=== PATIENT | female | born 1950 | race Caucasian/White ===

== ENCOUNTER 2018-09-09 20:58 | Emergency (ER) | END 2018-09-09 23:38 | disposition home or self-care (01) ==

== ENCOUNTER 2019-01-16 18:03 | Emergency (ER) | payer BC ==
[~2019-01-16] VITALS: Ht 170.2 cm; Wt 57.2 kg
[~2019-01-16 18:03] MED LIST: ATOR20TA38 PO; DICY10CA40 PO; HYDR-3720 PO; HYDR-3980 PO; ONDA4TAB14 PO; ONDA4TAB35 PO; PANT40TA3 PO
[2019-01-16 18:57] VITALS: Ht 170.2 cm; Wt 57.2 kg
[2019-01-16] MEDS ORDERED: SOD CHLORIDE 0.9% 1,000 ML IV STA ×3 (19:19→21:40)
[2019-01-16] MEDS ORDERED: morphine 4 MG/ML VIAL IV STA (19:19)
[2019-01-16] MEDS ORDERED: ONDANSETRON 4 MG INJ IV STA ×2 (19:19→20:24)
[2019-01-16] MEDS ORDERED: SOD CHLORIDE 0.9% 100 ML ONE (20:22)
[2019-01-16] MEDS ORDERED: IOHEXOL 300MG/ML 150 ML BTL ONE (20:22)
[2019-01-16] MEDS ORDERED: FAMOTIDINE 20 MG INJ IV STA (20:24)
[2019-01-16] MEDS ORDERED: HYDROmorphONE 1 MG/ML SYG IV STA (20:24)
[2019-01-16] MEDS ORDERED: PROCHLORPERAZINE 10 MG INJ IV ONE (22:00)
[2019-01-16 22:30] VITALS: BP 161/98; PULSE 91; RESP 18
--- NOTE | 2019-01-16 22:50 | ERD ---
ER Documentation Chief Complaint Chief Complaint AP w/ n/v since 3PM. unable to keep anything down. hx of SBO HPI This is a very pleasant 68-year-old female that presents the emergency department complaining of a sudden onset of abdominal cramping that occurred around 3 PM, 7 hours prior to arrival. The patient indicated the pain was a cramping-like sensation. The pain was in the left lower quadrant but began to radiate to the right lower quadrant. She had multiple episodes of nonbloody nonbilious emesis. She said no fevers or shaking or chills. She denies any shortness of breath at rest or exertion. No frequency urgency or dysuria. No hemoptysis no hematemesis, no melanotic stools. She states she is never had any similar symptoms in the past. She denies any chest pain or pressure. ROS All systems reviewed and are negative except as per history of present illness. Medications Home Meds Active Scripts Ondansetron (Ondansetron Odt) 4 Mg Tab.rapdis, 4 MG PO Q6H PRN for NAUSEA AND/OR VOMITING, #10 TAB Prov:POLY RAMIREZ 09/09/18 Hydrocodone/Acetaminophen ([place] 10-325 Tablet) 1 Each Tablet, 1 TAB PO Q6H PRN for PAIN, #7 TAB Prov:POLY RAMIREZ 09/09/18 Dicyclomine HCl (Dicyclomine HCl) 10 Mg Capsule, 10 MG PO TID PRN for ABDOMINAL CRAMPING, #20 CAP Prov:POLY RAMIREZ 09/09/18 Dicyclomine HCl (Dicyclomine HCl) 10 Mg Capsule, 10 MG PO QID, #30 CAP Prov:DAE CHO MD 10/01/15 Ondansetron Hcl* (Zofran* ODT) 4 mg -ODT Tab.disper, 4 MG PO Q6 PRN for NAUSEA AND/OR VOMITING, #20 TAB Prov:DAE CHO MD 10/01/15 Pantoprazole* (Protonix*) 40 Mg Tablet.dr, 40 MG PO BID for 30 Days, TAB Prov:ESTELLA LEGGETT 09/11/15 Reported Medications Hydrocodone Bit-Acetaminophen* ([place]*) 7.5-325 Tablet, 1 TAB PO Q12 PRN for PAIN 10/01/15 Atorvastatin Calcium* (Atorvastatin Calcium*) 20 Mg Tablet, 20 MG PO HS, TAB 06/13/14 Allergies Allergies: Coded Allergies: Penicillins (Verified Allergy, Unknown, rash, 09/09/18) Sulfa (Sulfonamide Antibiotics) (Verified Allergy, Unknown, rash, 09/09/18) PMhx/Soc History of Surgery: No Anesthesia Reaction: No Hx Neurological Disorder: Yes (seizure) Hx Respiratory Disorders: No Hx Cardiac Disorders: No Hx Psychiatric Problems: No Hx Miscellaneous Medical Probl: No Hx Alcohol Use: No Hx Substance Use: No Hx Tobacco Use: Yes Smoking Status: Current every day smoker Physical Exam Vitals Vital Signs Date Temp Pulse Resp B/P (MAP) Pulse Ox O2 O2 Flow FiO2 Time Delivery Rate 01/16/19 99.5 130 23 102/57 97 18:57 (72) Physical Exam Constitutional:Well-developed. Well-nourished. Actively vomiting. HEENT:Normocephalic. Atraumatic.Pupils were equal round reactive to light. Dry mucous membranes.No tonsillar exudates. Neck: No nuchal rigidity. No lymphadenopathy. No posterior cervical spine tenderness or step-offs. Respiratory: Not using accessory muscles of respiration.Lungs were clear to auscultation bilaterally. No rhonchi. No rales. No wheezing. Cardiovascular: Regular rate regular rhythm.No murmurs. No rubs were appreciated.S1, S2 normal. Distal pulses are palpable 2+ bilaterally. GI: Abdomen was soft. Tenderness in the left lower quadrant in the right lower quadrant however psoas sign and obturator sign was negative. Non Distended. No pulsatile abdominal masses or bruits. No rebound. No guarding. Bowel sounds were present and normal. Muscle skeletal: Full range of motion of both the upper and lower extremities bilaterally.Normal muscle tone.No assymetrical calf tenderness or swelling. Skin: No petechia, no purpura. No lesions on the palms or the soles of the feet. No maculopapular rash. NEURO: Patient was alert, awake, orientated x3.No facial droop. Gait observed and normal with no ataxia.Speech had regular rate and rhythm. No focal n eurological deficits. Result Diagram: 01/16/19194301/16/191943 Results 24 hrs Laboratory Tests Test 01/16/19 19:44 01/16/19 20:47 White Blood Count 9.9 10^3/ul Red Blood Count 4.59 10^6/ul Hemoglobin 14.3 g/dl Hematocrit 41.5 % Mean Corpuscular Volume 90.4 fl Mean Corpuscular Hemoglobin 31.2 pg Mean Corpuscular Hemoglobin Concent 34.5 g/dl Red Cell Distribution Width 11.9 % Platelet Count 379 10^3/UL Mean Platelet Volume 9.2 fl Immature Granulocytes % 0.300 % Neutrophils % 76.2 % Lymphocytes % 15.0 % Monocytes % 7.9 % Eosinophils % 0.1 % Basophils % 0.5 % Nucleated Red Blood Cells % 0.0 /100WBC Immature Granulocytes # 0.030 10^3/ul Neutrophils # 7.5 10^3/ul Lymphocytes # 1.5 10^3/ul Monocytes # 0.8 10^3/ul Eosinophils # 0.0 10^3/ul Basophils # 0.1 10^3/ul Nucleated Red Blood Cells # 0.0 10^3/ul Prothrombin Time 12.9 Sec Prothrombin Time Ratio 1.0 INR International Normalized Ratio 0.96 Activated Partial Thromboplast Time 25.9 Sec Sodium Level 140 mmol/L Potassium Level 5.3 mmol/L Chloride Level 103 mmol/L Carbon Dioxide Level 23 mmol/L Anion Gap 14 Blood Urea Nitrogen 12 mg/dl Creatinine 0.50 mg/dl Est Glomerular Filtrat Rate mL/min > 60 mL/min Glucose Level 114 mg/dl Calcium Level 9.8 mg/dl Total Bilirubin 0.6 mg/dl Direct Bilirubin 0.00 mg/dl Indirect Bilirubin 0.6 mg/dl Aspartate Amino Transf (AST/SGOT) 46 IU/L Alanine Aminotransferase (ALT/SGPT) 12 IU/L Alkaline Phosphatase 61 IU/L Troponin I 0.013 ng/ml Total Protein 9.1 g/dl Albumin 5.0 g/dl Globulin 4.10 g/dl Albumin/Globulin Ratio 1.21 Amylase Level 117 U/L Lipase 93 U/L Urine Color YELLOW Urine Clarity SLIGHTLY CLOUDY Urine pH 6.0 Urine Specific [place] 1.041 Urine Ketones 2+ mg/dL Urine Nitrite POSITIVE mg/dL Urine Bilirubin NEGATIVE mg/dL Urine Urobilinogen NEGATIVE mg/dL Urine Leukocyte Esterase 1+ Kavita/ul Urine Microscopic RBC 4 /HPF Urine Microscopic WBC 10 /HPF Urine Squamous Epithelial Cells FEW /HPF Urine Mucus FEW /HPF Urine Hemoglobin NEGATIVE mg/dL Urine Glucose NEGATIVE mg/dL Urine Total Protein NEGATIVE mg/dl Current Medications Medications Dose Sig/Benigno Start Time Status Last (Trade) Ordered Route PRN Stop Time Admin Dose Reason Admin Sodium 1,000 ml @ Q1H STAT 01/16/19 DC 01/16/19 Chloride 1,000 mls/hr IV 19:19 01/16/19 19:47 20:18 Morphine 4 mg ONCE STAT 01/16/19 DC 01/16/19 Sulfate IV 19:01/16/19 19:47 (morphine) 19:20 Ondansetron 4 mg ONCE STAT 01/16/19 DC 01/16/19 HCl (Zofran IV 19:01/16/19 19:47 Inj) 19:20 IV Flush 10 ml STK-MED 01/16/19 DC (NS 10 ml) ONCE .ROUTE 20:22 01/16/19 20:23 Sodium 100 ml @ ud STK-MED 01/16/19 DC Chloride ONCE .ROUTE 20:22 01/16/19 20:23 Iohexol 150 ml STK-MED 01/16/19 DC (Omnipaque ONCE .ROUTE 20:22 01/16/19 300mg/ ml) 20:23 Sodium 1,000 ml @ Q1H STAT 01/16/19 DC 01/16/19 Chloride 1,000 mls/hr IV 20:24 01/16/19 20:38 21:23 1 mg ONCE STAT 01/16/19 DC 01/16/19 Hydromorphone IV 20:24 01/16/19 20:39 HCl 20:29 (Dilaudid) Ondansetron 4 mg ONCE STAT 01/16/19 DC 01/16/19 HCl (Zofran IV 20:24 01/16/19 20:38 Inj) 20:29 Famotidine 20 mg ONCE STAT 01/16/19 DC 01/16/19 (Pepcid Iv) IV 20:24 01/16/19 20:38 20:29 Sodium 1,000 ml @ Q1H STAT 01/16/19 DC Chloride 1,000 mls/hr IV 21:40 01/16/19 22:39 10 mg ONCE ONCE 01/16/19 DC Prochlorperaz IV 22:00 01/16/19 ine 22:01 (Compazine Inj) Procedures/MDM This patient presented to the emergency department with abdominal pain and was seen and evaluated by myself. My differential diagnosis included but was not li mited to abdominal aortic aneurysm, appendicitis, pancreatitis, perforated peptic ulcer, perforated viscus, Boerhaaves syndrome or visceral pain such as diverticulitis, DKA, esophagitis, hepatitis or bowel obstruction. The patient was placed on a court recording monitor, continuous pulse oximetry, and IV access was established by nursing staff. Patient was given intravenous morphine and Zofran for analgesic control. The patient continued to have episodes of nonbloody nonbilious emesis and therefore received Reglan Pepcid and Compazine. 12 Lead EKG tracing ordered and reviewed by myself showed: Sinus tachycardia 109 bpm and no arrhythmia. OH interval normal. QRS duration normal. No ST segment elevation No ST segment depression. No changes consistent with acute ischemia. I obtained a CT scan of the patient's abdomen due to the localization of her pain and emesis. Patient had no previous surgical history. CT scan reviewed by the radiologist indicate the following: The colon is decompressed resulting in mild wall thickening without obstruction or appendicitis. There is extensive diverticulosis of the presence of a sigmoid diverticulitis. Atherosclerotic disease is present. The patient ketonuria but no evidence of urinary tract infection. I did feel this was secondary to dehydration from multiple episodes of emesis. She received IV fluid resuscitation. Observation Note: Time: 5 hours Family Hx: No Hypertension Evaluation: Multiple exams showed improving symptoms and no evidence of inability to tolerate oral intake. Indicates the patient I did feel her symptoms were result of diverticulosis. She was sent home with antiemetics and analgesic medication. I also stated that she would benefit from an outpatient colonoscopy. She indicated she will be able to arrange for that. The patient was discharged home in fair condition. They were instructed to return to the manuel rgency department at any time if there was any worsening of their condition. The patient stated they would follow up with their PCP in the next 24-48 hours to initiate a suitable medication regimen under the care of their PCP as well as to allow their PCP to monitor any drug reactions. The patient was discharged home with prescriptions after they gave informed consent to the new medication. They were also fully informed by myself on the adverse effects and adverse drug interactions in order to provide adequate safeguards to prevent possible adverse reactions to medications. Departure Diagnosis: Primary Impression: Diverticulosis Additional Impression: Severe dehydration Condition: RIAN Bryson MD Jan 16, 2019 22:50
[2019-01-16] MEDS ORDERED: FAMO-96 PO (22:53)
[2019-01-16] MEDS ORDERED: ONDA4TAB14 PO (22:53)
[2019-01-16] MEDS ORDERED: HYDR-4011 PO (22:53)
== END 2019-01-16 23:18 | disposition home or self-care (01) ==
LOC: E/R 18:03
DX: K57.30 Diverticulosis of large intestine without perforation or abscess without bleeding (principal); F17.210 Nicotine dependence, cigarettes, uncomplicated; E86.0 Dehydration
CPT/HCPCS: 36415; 74177; 80053; 81001; 82150; 83690; 84484; 85025; 85610; 85730; 87086; 96374; 96375; 96376; 99285; J0780; J1170; J2270; J2405; J7030; Q9967

== ENCOUNTER 2019-01-30 19:20 | Emergency (ER) | payer BC ==
[~2019-01-30] VITALS: Ht 170.2 cm; Wt 55.9 kg
[~2019-01-30 19:20] MED LIST changes: +FAMO-96 PO; +HYDR-4011 PO
[2019-01-30 19:42] VITALS: Ht 170.2 cm; Wt 55.9 kg
[2019-01-30] MEDS ORDERED: LEVOFLOXACIN 500MG/D5W (PMX) 100 ML IVPB STA (20:37)
[2019-01-30] MEDS ORDERED: metroNIDAZOLE 500 MG/NS (PMX) 100 ML IVPB STA (20:37)
[2019-01-30] MEDS ORDERED: SODIUM CHLORIDE 0.9% 1L BAG IV* STA (20:37)
[2019-01-30] MEDS ORDERED: ONDANSETRON 4 MG INJ IV STA (20:46)
[2019-01-30] MEDS ORDERED: ONDANSETRON 4 MG INJ ONE (20:47)
[2019-01-30] MEDS ORDERED: morphine 4 MG/ML VIAL IV STA (20:58)
[2019-01-30] MEDS ORDERED: LEVE500T8 PO (21:12)
[2019-01-30] MEDS ORDERED: ATOR20TA38 PO (21:12)
[2019-01-30] MEDS ORDERED: morphine 2 MG INJ IV ONE (21:47)
[2019-01-30] MEDS ORDERED: LEVO750T25 PO (23:26)
--- NOTE | 2019-01-30 23:28 | ERD ---
ER Documentation Chief Complaint Chief Complaint n/v LLQ abd pain. hx diverticulitis. here 2 weeks ago for same HPI 68-year-old female presenting with complaints of right upper quadrant abdominal pain radiating to the right flank. She has associated nausea and vomiting. She describes the pain as aching, without alleviating or exacerbating factors. No associated fevers or chills. No associated diarrhea, constipation, hematochezia or melena. She states that she has a history of diverticulitis and thinks that this may be secondary to her diverticulitis. ROS All systems reviewed and are negative except as per history of present illness. Medications Home Meds Active Scripts Levofloxacin* (Levaquin*) 750 Mg Tablet, 750 MG PO DAILY for 4 Days, TAB Prov:DANY MARTINEZ MD 01/30/19 Ondansetron (Ondansetron Odt) 4 Mg Tab.rapdis, 4 MG PO Q6H PRN for NAUSEA AND/OR VOMITING, #20 TAB Prov:RIAN MENDES MD 01/16/19 Reported Medications Levetiracetam* (Levetiracetam*) 500 Mg Tablet, 500 MG PO BID, TAB 01/30/19 Atorvastatin Calcium* (Atorvastatin Calcium*) 20 Mg Tablet, 20 MG PO QHS, #30 TAB 01/30/19 Discontinued Reported Medications Hydrocodone Bit-Acetaminophen* ([place]*) 7.5-325 Tablet, 1 TAB PO Q12 PRN for PAIN 10/01/15 Atorvastatin Calcium* (Atorvastatin Calcium*) 20 Mg Tablet, 20 MG PO HS, TAB 06/13/14 Discontinued Scripts Hydrocodone/Acetaminophen ([place] 5-325 Tablet) 1 Each Tablet, 1 TAB PO Q6H PRN for PAIN, #7 TAB Prov:RIAN MENDES MD 01/16/19 Famotidine* (Pepcid*) 20 Mg Tablet, 20 MG PO BID for 4 Days, TAB Prov:RIAN MENDES MD 01/16/19 Ondansetron (Ondansetron Odt) 4 Mg Tab.rapdis, 4 MG PO Q6H PRN for NAUSEA AND/OR VOMITING, #10 TAB Prov:POLY RAMIREZ 09/09/18 Hydrocodone/Acetaminophen ([place] 10-325 Tablet) 1 Each Tablet, 1 TAB PO Q6H PRN for PAIN, #7 TAB Prov:POLY RAMIREZ S. 09/09/18 Dicyclomine HCl (Dicyclomine HCl) 10 Mg Capsule, 10 MG PO TID PRN for ABDOMINAL CRAMPING, #20 CAP Prov:POLY RAMIREZ S. 09/09/18 Dicyclomine HCl (Dicyclomine HCl) 10 Mg Capsule, 10 MG PO QID, #30 CAP Prov:DAE CHO MD 10/01/15 Ondansetron Hcl* (Zofran* ODT) 4 mg -ODT Tab.disper, 4 MG PO Q6 PRN for NAUSEA AND/OR VOMITING, #20 TAB Prov:DAE CHO MD 10/01/15 Pantoprazole* (Protonix*) 40 Mg Tablet.dr, 40 MG PO BID for 30 Days, TAB Prov:OLEKSANDRESTELLA 09/11/15 Allergies Allergies: Coded Allergies: Penicillins (Verified Allergy, Unknown, rash, 01/30/19) Sulfa (Sulfonamide Antibiotics) (Verified Allergy, Unknown, rash, 01/30/19) PMhx/Soc History of Surgery: No Anesthesia Reaction: No Hx Neurological Disorder: Yes (seizure) Hx Respiratory Disorders: No Hx Cardiac Disorders: No Hx Psychiatric Problems: Yes (depression) Hx Miscellaneous Medical Probl: Yes (diverticulitis) Hx Alcohol Use: No Hx Substance Use: No Hx Tobacco Use: Yes Smoking Status: Current every day smoker FmHx Family History: No diabetes Physical Exam Vitals Vital Signs Date Temp Pulse Resp B/P (MAP) Pulse Ox O2 O2 Flow FiO2 Time Delivery Rate 01/30/19 100 18 138/86 100 Room Air 23:53 (103) 01/30/19 99.1 139 28 107/72 98 19:42 (84) Physical Exam Const: Nontoxic. Mild distress secondary to pain. Retching Head: Atraumatic Eyes: Normal Conjunctiva ENT: Dry mucous membranes. Normal External Ears, Nose and Mouth. Neck: Full range of motion. No meningismus. Resp: Clear to auscultation bilaterally Cardio: Tachycardic with regular rhythm, no murmurs Abd: Soft, mild right upper quadrant tenderness to deep palpation. Negative Al[place]antara sign. No McBurney's point tenderness. non distended. Normal bowel sounds Skin: No petechiae or rashes Back: Right CVA mild tenderness to percussion Ext: No cyanosis, or edema Neur: Awake and alert, normal speech, moving all extremities, no facial asymmetry Psych: Normal Mood and Affect Result Diagram: 01/30/19203001/30/192030 Results 24 hrs Laboratory Tests Test 01/30/19 20:31 01/30/19 20:53 01/30/19 22:18 White Blood Count 13.7 10^3/ul Red Blood Count 4.68 10^6/ul Hemoglobin 14.5 g/dl Hematocrit 42.3 % Mean Corpuscular Volume 90.4 fl Mean Corpuscular Hemoglobin 31.0 pg Mean Corpuscular 34.3 g/dl Hemoglobin Concent Red Cell Distribution Width 12.7 % Platelet Count 453 10^3/UL Mean Platelet Volume 9.8 fl Immature Granulocytes % 0.400 % Neutrophils % 71.4 % Lymphocytes % 14.5 % Monocytes % 13.2 % Eosinophils % 0.1 % Basophils % 0.4 % Nucleated Red Blood Cells % 0.0 /100WBC Immature Granulocytes # 0.050 10^3/ul Neutrophils # 9.8 10^3/ul Lymphocytes # 2.0 10^3/ul Monocytes # 1.8 10^3/ul Eosinophils # 0.0 10^3/ul Basophils # 0.1 10^3/ul Nucleated Red Blood Cells # 0.0 10^3/ul Prothrombin Time 13.0 Sec Prothrombin Time Ratio 1.0 INR International 0.97 Normalized Ratio Activated Partial Thromboplast 26.9 Sec Time Sodium Level 140 mmol/L Potassium Level 3.9 mmol/L Chloride Level 104 mmol/L Carbon Dioxide Level 22 mmol/L Anion Gap 14 Blood Urea Nitrogen 17 mg/dl Creatinine 0.65 mg/dl Est Glomerular Filtrat > 60 mL/min Rate mL/min Glucose Level 156 mg/dl Calcium Level 10.6 mg/dl Total Bilirubin 0.3 mg/dl Direct Bilirubin 0.00 mg/dl Indirect Bilirubin 0.3 mg/dl Aspartate Amino 27 IU/L Transf (AST/SGOT) Alanine 11 IU/L Aminotransferase (ALT/SGPT) Alkaline Phosphatase 76 IU/L Total Protein 8.7 g/dl Albumin 4.9 g/dl Globulin 3.80 g/dl Albumin/Globulin Ratio 1.28 POC Venous Lactate 1.5 mmol/L Urine Color KATRIN Urine Clarity CLOUDY Urine pH 6.0 Urine Specific [place] 1.025 Urine Ketones 1+ mg/dL Urine Nitrite NEGATIVE mg/dL Urine Bilirubin NEGATIVE mg/dL Urine Urobilinogen 1+ mg/dL Urine Leukocyte Esterase 1+ Kavita/ul Urine Microscopic RBC 3 /HPF Urine Microscopic WBC 51 /HPF Urine Squamous Epithelial Cells MODERATE /HPF Urine Bacteria MODERATE /HPF Urine Mucus MANY /HPF Urine Hemoglobin 1+ mg/dL Urine Glucose NEGATIVE mg/dL Urine Total Protein 1+ mg/dl Current Medications Medications Dose Sig/Benigno Start Time Status Last (Trade) Ordered Route PRN Stop Time Admin Dose Reason Admin Sodium 1,680 ml BOLUS OVER 2 01/30/19 DC 01/30/19 Chloride HOURS STAT 20:37 21:13 (NS) IV* 01/30/19 20:39 100 ml @ ONCE STAT 01/30/19 DC 01/30/19 Metronidazole 100 mls/hr IVPB 20:37 21:14 01/30/19 21:36 100 ml @ ONCE STAT 01/30/19 DC 01/30/19 Levofloxacin/ 100 mls/hr IVPB 20:37 22:13 Dextrose 01/30/19 21:36 Ondansetron 4 mg ONCE STAT 01/30/19 DC 01/30/19 HCl (Zofran IV 20:46 21:14 Inj) 01/30/19 20:53 Ondansetron 4 mg STK-MED 01/30/19 DC HCl (Zofran ONCE .ROUTE 20:47 Inj) 01/30/19 20:48 Morphine 4 mg ONCE STAT 01/30/19 DC 01/30/19 Sulfate IV 20:58 21:13 (morphine) 01/30/19 20:59 Morphine 2 mg ONCE ONCE 01/30/19 DC 01/30/19 Sulfate IV 21:47 22:13 (morphine) 01/30/19 21:48 Procedures/MDM EMERGENT LABS AND DIAGNOSTIC STUDIES: Lab Results above were reviewed and interpreted by me. CBC: Leukocytosis and thrombocytosis, possibly secondary to infection. No significant anemia CMP: No evidence of clinically significant electrolyte abnormality, acidosis, renal failure, hypoglycemia, liver disease, or biliary obstruction Lactate within normal limits without evidence of sepsis or tissue hypoperfusion UA: Consistent with infection 12-lead EKG was interpreted by Minerva Martinez MD: Sinus tachycardia at 124 beats per minute Normal axis Normal intervals No acute ST or T wave changes suggestive of acute ischemia or STEMI. Radiology Results as interpreted by Radiology below were reviewed by Sharon Martinez MD: Ultrasound right upper quadrant unremarkable Chest x-ray shows no acute abnormalities Initial Nursing notes reviewed. Previous Medical Records requested via the Electronic Health Record. EMERGENCY DEPARTMENT COURSE / MEDICAL DECISION MAKING: Patient presented with right upper quadrant pain with nausea and vomiting. She was tachycardic and tachypneic, so sepsis workup was initiated. Differential includes but is not limited to biliary colic, biliary obstruction, acute cholecystitis, pancreatitis, hepatitis, lower lobe pneumonia, gastritis, colitis, ureterolithiasis, pyelonephritis. Doubt cardiac or vascular pathology. Labs were ordered to evaluate for above and were notable for leukocytosis, thrombocytosis, and evidence of UTI. Given the clinical picture, I do suspect pyelonephritis. Ultrasound of the right upper quadrant and chest x-ray showed no acute abnormalities. She did receive broad-spectrum antibiotics and IV fluids here. Workup did not reveal evidence of severe sepsis or septic shock. She was treated with analgesics and antiemetics with improvement of her sympto ms. Patient feels comfortable going home at this time. She is tolerating fluids by mouth. Prescription for Levaquin given. Return precautions were discussed. Patient's blood pressure was elevated (>120/80) but appears stable without evidence of hypertensive emergency or urgency. The patient was counseled about the risks of hypertension and urged to pursue outpatient monitoring and therapy within a week with their primary care physician. Departure Diagnosis: Primary Impression: Pyelonephritis Additional Impression: Nausea and vomiting Vomiting type: unspecified Vomiting Intractability: non-intractable Qualified Codes: R11.2 - Nausea with vomiting, unspecified Condition: Stable Patient Instructions: Nausea and Vomiting-Adult, Pyelonephritis, Female (Adult) Referrals: DOCTOR,NOT ON STAFF (PCP) Additional Instructions: Return to the ER if you are having any worsening symptoms or not improving within the next 24-48 hours. DANY MARTINEZ MD Jan 30, 2019 23:28
[2019-01-30 23:53] VITALS: BP 138/86; PULSE 100; RESP 18
== END 2019-01-30 23:54 | disposition home or self-care (01) ==
LOC: E/R 19:20
DX: N12 Tubulo-interstitial nephritis, not specified as acute or chronic (principal)
CPT/HCPCS: 36415; 71045; 76705; 80053; 81001; 83605; 85025; 85610; 85730; 87040; 87086; 93005; 96374; 96375; 96376; 99285; J1956; J2270; J2405; J7030

== ENCOUNTER 2019-02-21 16:41 | Emergency (ER) | payer BC ==
[~2019-02-21] VITALS: Ht 170.2 cm; Wt 59.3 kg
[~2019-02-21 16:41] MED LIST changes: -DICY10CA40 PO; -FAMO-96 PO; -HYDR-3720 PO; -HYDR-3980 PO; -HYDR-4011 PO; +LEVE500T8 PO; +LEVO750T25 PO; -ONDA4TAB35 PO; -PANT40TA3 PO
[2019-02-21 17:07] VITALS: Ht 170.2 cm; Wt 59.3 kg
[2019-02-21] MEDS ORDERED: ONDANSETRON 4 MG INJ IV STA (21:56)
[2019-02-21] MEDS ORDERED: morphine 4 MG/ML VIAL IV STA (21:56)
--- NOTE | 2019-02-21 21:58 | ERD ---
ER Documentation Chief Complaint Chief Complaint R flank pain 07/25, N/V, dizziness X 5 days HPI This is a 68-year-old female presents for evaluation of right flank pain, associated nausea and vomiting. Patient states that she feels dehydrated, and her pain has made her feel lightheaded. She denies chest pain or shortness of breath. She has no fever. There are no alleviating or aggravating factors or symptoms. ROS All systems reviewed and are negative except as per history of present illness. Medications Home Meds Active Scripts Ondansetron (Ondansetron Odt) 4 Mg Tab.rapdis, 4 MG PO Q6H PRN for NAUSEA AND/OR VOMITING, #20 TAB Prov:RIAN MENDES MD 01/16/19 Reported Medications Docusate Sodium* (Colace*) 100 Mg Capsule, 100 MG PO DAILY, #30 CAP 02/21/19 Levetiracetam* (Levetiracetam*) 500 Mg Tablet, 500 MG PO BID, TAB 01/30/19 Atorvastatin Calcium* (Atorvastatin Calcium*) 20 Mg Tablet, 20 MG PO QHS, #30 TAB 01/30/19 Discontinued Scripts Levofloxacin* (Levaquin*) 750 Mg Tablet, 750 MG PO DAILY for 4 Days, TAB Prov:DANY FRANCIS MD 01/30/19 Allergies Allergies: Coded Allergies: Penicillins (Unverified Allergy, Unknown, rash, 02/21/19) Sulfa (Sulfonamide Antibiotics) (Unverified Allergy, Unknown, rash, 02/21/19) PMhx/Soc History of Surgery: No Anesthesia Reaction: No Hx Neurological Disorder: Yes (seizure) Hx Respiratory Disorders: No Hx Cardiac Disorders: No Hx Psychiatric Problems: Yes (depression) Hx Miscellaneous Medical Probl: Yes (diverticulitis) Hx Alcohol Use: No Hx Substance Use: No Hx Tobacco Use: Yes Physical Exam Vitals Vital Signs Date Temp Pulse Resp B/P (MAP) Pulse Ox O2 O2 Flow FiO2 Time Delivery Rate 02/21/19 99.4 121 18 158/76 97 17:07 (103) Physical Exam Const: Well-developed, well-nourished, nontoxic-appearing Head: Atraumatic Eyes: Normal Conjunctiva ENT: Normal External Ears, Nose and Mouth. Neck: Full range of motion. No meningismus. Resp: Clear to auscultation bilaterally Cardio: Regular rate and rhythm, no murmurs Abd: Soft, non tender, non distended. Normal bowel sounds Skin: No petechiae or rashes Back: No midline or flank tenderness Ext: No cyanosis, or edema Neur: Awake and alert Psych: Normal Mood and Affect Result Diagram: 02/21/19221402/21/192214 Results 24 hrs Laboratory Tests Test 02/21/19 22:15 02/21/19 22:59 White Blood Count 10.1 10^3/ul Red Blood Count 4.29 10^6/ul Hemoglobin 13.1 g/dl Hematocrit 38.7 % Mean Corpuscular Volume 90.2 fl Mean Corpuscular Hemoglobin 30.5 pg Mean Corpuscular Hemoglobin Concent 33.9 g/dl Red Cell Distribution Width 11.9 % Platelet Count 332 10^3/UL Mean Platelet Volume 9.4 fl Immature Granulocytes % 0.400 % Neutrophils % 60.6 % Lymphocytes % 25.2 % Monocytes % 11.8 % Eosinophils % 1.1 % Basophils % 0.9 % Nucleated Red Blood Cells % 0.0 /100WBC Immature Granulocytes # 0.040 10^3/ul Neutrophils # 6.1 10^3/ul Lymphocytes # 2.5 10^3/ul Monocytes # 1.2 10^3/ul Eosinophils # 0.1 10^3/ul Basophils # 0.1 10^3/ul Nucleated Red Blood Cells # 0.0 10^3/ul Sodium Level 139 mmol/L Potassium Level 4.1 mmol/L Chloride Level 103 mmol/L Carbon Dioxide Level 26 mmol/L Anion Gap 10 Blood Urea Nitrogen 10 mg/dl Creatinine 0.80 mg/dl Est Glomerular Filtrat Rate mL/min > 60 mL/min Glucose Level 113 mg/dl Calcium Level 10.2 mg/dl Total Bilirubin 0.2 mg/dl Direct Bilirubin 0.00 mg/dl Indirect Bilirubin 0.2 mg/dl Aspartate Amino Transf (AST/SGOT) 18 IU/L Alanine Aminotransferase (ALT/SGPT) 11 IU/L Alkaline Phosphatase 63 IU/L Troponin I < 0.012 ng/ml Total Protein 7.5 g/dl Albumin 4.4 g/dl Globulin 3.10 g/dl Albumin/Globulin Ratio 1.41 Lipase 174 U/L Urine Color STRAW Urine Clarity CLEAR Urine pH 7.0 Urine Specific [place] 1.005 Urine Ketones NEGATIVE mg/dL Urine Nitrite NEGATIVE mg/dL Urine Bilirubin NEGATIVE mg/dL Urine Urobilinogen NEGATIVE mg/dL Urine Leukocyte Esterase 1+ Kavita/ul Urine Microscopic RBC 1 /HPF Urine Microscopic WBC 5 /HPF Urine Bacteria FEW /HPF Urine Hemoglobin NEGATIVE mg/dL Urine Glucose NEGATIVE mg/dL Urine Total Protein NEGATIVE mg/dl Current Medications Medications Dose Sig/Benigno Start Time Status Last (Trade) Ordered Route PRN Stop Time Admin Dose Reason Admin Morphine 4 mg ONCE STAT 02/21/19 DC 02/21/19 Sulfate IV 21:56 02/21/19 22:44 (morphine) 21:59 Ondansetron 4 mg ONCE STAT 02/21/19 DC 02/21/19 HCl (Zofran IV 21:56 02/21/19 22:44 Inj) 21:59 Ketorolac 15 mg ONCE STAT 02/21/19 DC 02/21/19 Tromethamine IV 23:13 02/21/19 23:21 (Toradol) 23:14 CBC: no e/o of systemic infection or severe anemia CMP: no e/o severe acidosis, alkalosis, renal failure, diabetic ketoacidosis, liver disease Lipase: no e/o pancreatitis PT/INR: normal coagulation Urine: no e/o acute infection or hematuria EKG: Rate/Rhythm: Normal Sinus Rhythm QRS, ST, T-waves: No changes consistent w/ acute ischemia Impression: No evidence of ischemia or arrhythmia Procedures/MDM 68-year-old female presents for evaluation of right flank pain. She has a recent history of a 3 mm kidney stone, she had no fever, no peritoneal signs on exam. Her lab work-up was overall unremarkable her CT of the pelvis did not show a kidney stone, and this may be a sign that her kidney stone is not passed, patient is otherwise stable for discharge home, at discharge she was in no distress. EKG: Rate/Rhythm: Normal Sinus Rhythm QRS, ST, T-waves: No changes consistent w/ acute ischemia Impression: No evidence of ischemia or arrhythmia Departure Diagnosis: Primary Impression: Dizziness Additional Impression: Abdominal pain Abdominal location: unspecified location Qualified Codes: R10.9 - Unspecified abdominal pain Condition: Stable MARION GARZA MD February 21, 2019 21:58
[2019-02-21] MEDS ORDERED: DOCU-144 PO (22:36)
[2019-02-21] MEDS ORDERED: KETOROLAC 15 MG INJ IV STA (23:13)
[2019-02-22] MEDS ORDERED: ONDA8TAB14 PO (00:25)
[2019-02-22 00:55] VITALS: BP 169/116; PULSE 77; RESP 18
== END 2019-02-22 00:58 | disposition home or self-care (01) ==
LOC: E/R 16:41
DX: R42 Dizziness and giddiness (principal); R10.9 Unspecified abdominal pain; Z87.891 Personal history of nicotine dependence
CPT/HCPCS: 36415; 74176; 80053; 81001; 83690; 84484; 85025; 93005; 96374; 96375; 99285; J1885; J2270; J2405

== ENCOUNTER 2019-03-04 15:47 | Inpatient (IN) | payer BC ==
[~2019-03-04] VITALS: Ht 170.2 cm; Wt 56.5 kg
[~2019-03-04 15:47] MED LIST changes: +DOCU-144 PO; -LEVO750T25 PO; +ONDA8TAB14 PO
[2019-03-04] MEDS ORDERED: AZTREONAM 1 GM/NS (PMX) 50 ML IVPB STA (15:59)
[2019-03-04] MEDS ORDERED: VANCOMYCIN 1 GM (PMX) 250 ML IVPB ONE (16:00)
[2019-03-04] MEDS ORDERED: SODIUM CHLORIDE 0.9% 1L BAG IV* STA (16:02)
[2019-03-04] MEDS ORDERED: ACETAMINOPHEN 325 MG TAB PO STA (16:02)
[2019-03-04] MEDS ORDERED: morphine 4 MG/ML VIAL IV STA ×2 (16:13→17:44)
[2019-03-04] MEDS ORDERED: ONDANSETRON 4 MG INJ IV STA ×2 (16:13→17:44)
[2019-03-04] MEDS ORDERED: ACETAMINOPHEN 325 MG TAB PO PRN ×2 (18:00→20:00)
[2019-03-04] MEDS ORDERED: ONDANSETRON 4 MG INJ IV PRN (18:00)
--- NOTE | 2019-03-04 19:03 | ERD ---
ER Documentation Chief Complaint Chief Complaint rt flank pain with vomiting x few days HPI Patient is a 68-year-old female with no medical problems who presents with nausea and vomiting. She said that she started with nausea on Monday. She tried some medication and it stopped but she has had decreased appetite over the past 2 days. She started with vomiting today and then dry heaves and was vomiting bile. She also has right-sided flank pain and says "maybe it is my kidney". She admits to fevers and says that she has had a kidney infection in the past. Upon review of old medical records this is the patient's eighth visit to the ER since 2013. Review of the emergency department information exchange system shows visits to 2 separate emergency departments for a total of 8 visits over the past 1 year. She goes to a local clinic for her primary care. ROS All systems reviewed and are negative except as per history of present illness. Medications Home Meds Active Scripts Ondansetron (Ondansetron Odt) 8 Mg Tab.rapdis, 8 MG PO Q6H PRN for NAUSEA AND/OR VOMITING, #10 TAB Prov:MARION GARZA MD 02/22/19 Reported Medications Docusate Sodium* (Colace*) 100 Mg Capsule, 100 MG PO DAILY, #30 CAP 02/21/19 Levetiracetam* (Levetiracetam*) 500 Mg Tablet, 500 MG PO BID, TAB 01/30/19 Atorvastatin Calcium* (Atorvastatin Calcium*) 20 Mg Tablet, 20 MG PO QHS, #30 TAB 01/30/19 Discontinued Scripts Ondansetron (Ondansetron Odt) 4 Mg Tab.rapdis, 4 MG PO Q6H PRN for NAUSEA AND/OR VOMITING, #20 TAB Prov:RIAN MENDES MD 01/16/19 Allergies Allergies: Coded Allergies: Penicillins (Unverified Allergy, Unknown, rash, 03/04/19) Sulfa (Sulfonamide Antibiotics) (Unverified Allergy, Unknown, rash, 03/04/19) PMhx/Soc History of Surgery: No Anesthesia Reaction: No Hx Neurological Disorder: Yes (seizure) Hx Respiratory Disorders: No Hx Cardiac Disorders: No Hx Psychiatric Problems: Yes (depression) Hx Miscellaneous Medical Probl: Yes (diverticulitis) Hx Alcohol Use: No Hx Substance Use: No Hx Tobacco Use: Yes Smoking Status: Current every day smoker FmHx Family History: diabetes Physical Exam Vitals Vital Signs Date Temp Pulse Resp B/P (MAP) Pulse Ox O2 O2 Flow FiO2 Time Delivery Rate 03/04/19 98.4 99 18 152/97 98 Room Air 18:00 (115) 03/04/19 105 18 149/93 98 Room Air 17:00 (111) 03/04/19 98.5 16:33 03/04/19 100.8 130 18 145/88 98 15:58 (107) Physical Exam Const: Moderate distress Head: Atraumatic Eyes: Normal Conjunctiva ENT: Normal External Ears, Nose and Mouth. Neck: Full range of motion. No meningismus. Resp: Clear to auscultation bilaterally Cardio: Tachycardic rate without murmur Abd: Soft, non tender, non distended. Normal bowel sounds Skin: No petechiae or rashes Back: No midline or flank tenderness Ext: No cyanosis, or edema Neur: Awake and alert Psych: Normal Mood and Affect Result Diagram: 03/04/19 1626 03/04/19 1626 Results 24 hrs Laboratory Tests Test 03/04/19 16:26 03/04/19 16:40 03/04/19 16:50 White Blood Count 9.0 10^3/ul Red Blood Count 4.68 10^6/ul Hemoglobin 14.4 g/dl Hematocrit 42.0 % Mean Corpuscular Volume 89.7 fl Mean Corpuscular Hemoglobin 30.8 pg Mean Corpuscular 34.3 g/dl Hemoglobin Concent Red Cell Distribution Width 12.0 % Platelet Count 358 10^3/UL Mean Platelet Volume 9.5 fl Immature Granulocytes % 0.300 % Neutrophils % 75.2 % Lymphocytes % 13.7 % Monocytes % 10.1 % Eosinophils % 0.0 % Basophils % 0.7 % Nucleated Red Blood Cells % 0.0 /100WBC Immature Granulocytes # 0.030 10^3/ul Neutrophils # 6.8 10^3/ul Lymphocytes # 1.2 10^3/ul Monocytes # 0.9 10^3/ul Eosinophils # 0.0 10^3/ul Basophils # 0.1 10^3/ul Nucleated Red Blood Cells # 0.0 10^3/ul Prothrombin Time 12.9 Sec Prothrombin Time Ratio 1.0 INR International 0.96 Normalized Ratio Activated Partial Thromboplast 26.6 Sec Time Sodium Level 142 mmol/L Potassium Level 4.0 mmol/L Chloride Level 101 mmol/L Carbon Dioxide Level 24 mmol/L Anion Gap 17 Blood Urea Nitrogen 15 mg/dl Creatinine 0.66 mg/dl Est Glomerular Filtrat > 60 mL/min Rate mL/min Glucose Level 167 mg/dl Calcium Level 10.1 mg/dl Total Bilirubin 0.6 mg/dl Direct Bilirubin 0.00 mg/dl Indirect Bilirubin 0.6 mg/dl Aspartate Amino 26 IU/L Transf (AST/SGOT) Alanine 11 IU/L Aminotransferase (ALT/SGPT) Alkaline Phosphatase 79 IU/L Troponin I < 0.012 ng/ml Total Protein 9.0 g/dl Albumin 5.1 g/dl Globulin 3.90 g/dl Albumin/Globulin Ratio 1.30 Lipase 81 U/L POC Venous Lactate 2.2 mmol/L Urine Color YELLOW Urine Clarity SLIGHTLY CLOUDY Urine pH 6.0 Urine Specific [place] 1.026 Urine Ketones 2+ mg/dL Urine Nitrite NEGATIVE mg/dL Urine Bilirubin 1+ mg/dL Urine Urobilinogen 2+ mg/dL Urine Leukocyte Esterase 2+ Kavita/ul Urine Microscopic RBC 3 /HPF Urine Microscopic WBC 27 /HPF Urine Squamous Epithelial Cells MODERATE /HPF Urine Bacteria FEW /HPF Urine Mucus MANY /HPF Urine Hemoglobin NEGATIVE mg/dL Urine Glucose NEGATIVE mg/dL Urine Total Protein 1+ mg/dl Current Medications Medications Dose Sig/Benigno Start Time Status Last (Trade) Ordered Route PRN Stop Time Admin Dose Reason Admin Vancomycin 250 ml @ ONCE ONCE 03/04/19 DC 03/04/19 HCl 125 mls/hr IVPB 16:00 17:38 03/04/19 17:59 Aztreonam 50 ml @ ONCE STAT 03/04/19 DC 03/04/19 100 mls/hr IVPB 15:59 16:54 03/04/19 16:28 Sodium 1,680 ml BOLUS OVER 2 03/04/19 DC 03/04/19 Chloride HOURS STAT 16:02 16:32 (NS) IV* 03/04/19 16:03 650 mg ONCE STAT 03/04/19 DC 03/04/19 Acetaminophen PO 16:02 16:33 (Tylenol 03/04/19 16:03 Tab) Morphine 4 mg ONCE STAT 03/04/19 DC 03/04/19 Sulfate IV 16:13 16:30 (morphine) 03/04/19 16:14 Ondansetron 4 mg ONCE STAT 03/04/19 DC 03/04/19 HCl (Zofran IV 16:13 16:30 Inj) 03/04/19 16:14 Morphine 4 mg ONCE STAT 03/04/19 DC 03/04/19 Sulfate IV 17:44 18:02 (morphine) 03/04/19 17:45 Ondansetron 4 mg ONCE STAT 03/04/19 DC 03/04/19 HCl (Zofran IV 17:44 18:01 Inj) 03/04/19 17:45 Ondansetron 4 mg BRIDGE ORDER 03/04/19 HCl (Zofran PRN IV 18:00 Inj) NAUSEA/VOMITI 03/05/19 17:59 NG 650 mg ER BRIDGE 03/04/19 Acetaminophen PRN PO 18:00 (Tylenol .MILD PAIN 03/05/19 17:59 Tab) 1-3 OR TEMP Procedures/MDM Chest x-ray read by radiology. CT abdomen pelvis read by radiology. EKG read by me: Rate/Rhythm: Sinus tachycardia Intervals: Normal Impression: Tachycardia without ischemia Sepsis Documentation: Patient's infectious symptoms have not stabilized and the patient is at risk of rapid decompensation. The patient will be admitted for careful hydration, antibiotic therapy, and infectious source control. SEVERE SEPSIS CRITERIA: Infectious source: Pyelonephritis End organ damage indicated by: Lactate greater than 2 SEPSIS MANAGEMENT Time of recognition of sepsis: 1640. Time of recognition of severe sepsis: 1640. Time of recognition of septic shock: No septic shock at this time. 3 HOUR BUNDLE Blood cultures x 2 before broad-spectrum antibiotics: Yes 30 ml/kg NS bolus completed Initial lactate 2.2 Repeat lactate pending SEPTIC SHOCK ASSESSMENT: No lactic acid > 4.0 No persistent hypotension (SBP < 90 or 40 mmHg drop, MAP < 65) despite 30 mL/kg IV fluid bolus VOLUME REASSESSMENT FOR SEPTIC SHOCK: No septic shock at this time PERSISTENT HYPOTENSION TREATMENT: Comfort care no Central line not Required Vasopressor started not required I considered further perfusion assessment with CVP measurement, SCVO2, bedside ultrasound volume assessment, passive leg raise, trial of further fluid bolus. And proceeded with 30 ml/kg fluid bolus of NSS, broad spectrum antibiotics, and admission. The patient was given vancomycin and aztreonam as she has a penicillin allergy. I spoke with Dr. Londono from [place] for admission to a medical surgical bed. CRITICAL CARE Critical care time 35 minutes Emergent fluid management while maintaining close respiratory support. Provision of immediate and broad-spectrum antibiotic therapy. Simultaneous assessment for possible sources in order to direct targeted therapy. Consideration for invasive and chemical support to prevent cardiopulmonary collapse. Critical care time is independent of procedures performed. Departure Diagnosis: Primary Impression: Severe sepsis Additional Impression: Pyelonephritis Condition: RENETTA Henriquez MD March 04, 2019 19:03
[2019-03-04 19:44] VITALS: BP 156/89; PULSE 102; RESP 20
[2019-03-04] MEDS: LEVETIRACETAM 500 MG TAB PO SCH (20:44)
[2019-03-04] MEDS: morphine 2 MG INJ IV PRN ×2 (20:48→23:09)
[2019-03-04] MEDS: SOD CHLORIDE 0.9% 1,000 ML IV SCH (20:50)
[2019-03-04] MEDS ORDERED: ATORVASTATIN 20 MG TAB PO SCH (21:00)
[2019-03-04 21:53] VITALS: Ht 170.2 cm; Wt 56.5 kg
[2019-03-04] MEDS: AZTREONAM 1 GM/NS (PMX) 50 ML IVPB SCH (23:04)
[2019-03-04] MEDS: ONDANSETRON 4 MG INJ IV PRN (23:09)
--- NOTE | 2019-03-05 00:15 | QN ---
Documentation Comment H&P dict 1. fever with RUQ/R flank pain, check us, cont rx for presumed uti DREAD EDGE MD March 05, 2019 00:15
[2019-03-05] MEDS: metroNIDAZOLE 500 MG/NS (PMX) 100 ML IVPB SCH ×3 (00:46→13:24)
[2019-03-05 01:41] VITALS: BP 142/84; PULSE 95; RESP 18
[2019-03-05] MEDS: morphine 2 MG INJ IV PRN ×3 (04:04→13:24)
[2019-03-05] MEDS: ONDANSETRON 4 MG INJ IV PRN ×2 (04:04→08:33)
[2019-03-05] MEDS: SOD CHLORIDE 0.9% 1,000 ML IV SCH ×3 (04:04→16:00)
[2019-03-05] MEDS: AZTREONAM 1 GM/NS (PMX) 50 ML IVPB SCH ×2 (05:17→15:00)
--- NOTE | 2019-03-05 06:28 | HP ---
DATE OF ADMISSION: 03/04/2019 CHIEF COMPLAINT: Nausea. HISTORY OF PRESENT ILLNESS: The patient presents to the emergency room at [facility] with a 2- to 3-day history of nausea. She states that this began last Monday, approximately 2 to 3 days ago. She has been having difficulty eating over that same time. She denies any actual vomiting. De nies diarrhea, constipation. States that this is associated with some right flank and right upper qu adrant pain. She does have this 1 time before which she says was attributed to a kidney infection. PAST MEDICAL HISTORY: Significant for hyperlipidemia. MEDICATIONS: Outpatient include: 1. Lipitor 20 mg daily. 2. Keppra 500 mg b.i.d. 3. Colace 100 mg daily. 4. Zofran as needed. ALLERGIES: 1. PENICILLIN. 2. SULFA. SOCIAL HISTORY: The patient lives at home in [place] with her and grandson, is independent of activities of daily living. Smokes approximately 3 cigarettes a day but is working to quit. Francisco Javier es alcohol or illicit drug use. FAMILY HISTORY: Noncontributory. REVIEW OF SYSTEMS: Five systems reviewed and found not to be revealing. PHYSICAL EXAMINATION: VITAL SIGNS: Blood pressure 156/89, pulse rate 102, respirations 20, temperature is 99.1. GENERAL: Pleasant woman in no acute distress. Alert and oriented x3. HEENT: Normocephalic, atraumatic without evident scleral icterus, perioral cyanosis. Mucous membran es are moist. NECK: Soft and supple without masses. No evidence of jugular venous distention or carotid bruits. CHEST: Clear to auscultation and percussion bilaterally. HEART: Regular rate and rhythm, S1-S2, no added sounds. ABDOMEN: Soft, tender especially in the right upper quadrant. No palpable hepatosplenomegaly. EXTREMITIES: Without clubbing, cyanosis, or edema. SKIN: Without rashes. NEUROLOGIC: Grossly intact. LABORATORY STUDIES: Reveal a hemoglobin of 14.4 g/dL, white count 9000, platelets of 358,000. INR 0 .96, sodium 142, potassium 4.0, chloride 101, bicarbonate 24, BUN 15, creatinine 0.66, glucose 167. Liver function tests reveal an AST 26, ALT 11, total bilirubin 0.6, alkaline phosphatase 79. UA show s [address] scan of the abdomen and pelvis reveals fluid-filled loops of jejunum, but otherwise no rmal. ASSESSMENT AND PLAN: Fever, unclear etiology. Leading hypothesis at this time is urinary tract infe ction, pyelonephritis; however, consider also gallstone disease as a possibility. We will obtain ult rasound for further clarification. Continue treatment with antibiotics at this time. Dictated By: DREAD EDGE MD RER/NTS Conf#: [id number] DID#: [id number] CC: LISA GOMEZ MD;*EndCC*
[2019-03-05 08:06] VITALS: BP 101/66; PULSE 78; RESP 20
[2019-03-05] MEDS: LEVETIRACETAM 500 MG TAB PO SCH (08:33)
[2019-03-05] MEDS ORDERED: CEPH-443 PO (08:58)
[2019-03-05] MEDS ORDERED: CEPH-442 PO (08:58)
--- NOTE | 2019-03-05 08:58 | PDOCDIS ---
Discharge Instructions CONDITION [id number] Patient Condition: [id number] Good HOME CARE INSTRUCTIONS: [id number] Diet Instructions: [id number] FOLLOW UP/APPOINTMENTS Follow-up Plan pcp 1 week LISA GOMEZ MD March 05, 2019 08:58
[2019-03-05] MEDS ORDERED: DOCUSATE SODIUM 100 MG CAP PO SCH (09:00)
--- NOTE | 2019-03-05 09:54 | DS ---
DATE OF ADMISSION: 03/04/2019 DATE OF DISCHARGE: 03/05/2019 DISCHARGE DIAGNOSES: 1. Acute pyelonephritis. 2. Hyperlipidemia. 3. History of seizure disorder. HOSPITAL COURSE: A 68-year-old female who presented to emergency room with complaint of nausea x2 to 3 days, associated with right flank pain. The patient denies any vomiting. There was no dysuria. Initial evaluation revealed evidence of urinary tract infection and possible pyelonephritis. There w as no associated leukocytosis. Initial CAT scan suggested mild small bowel ileus. The patient had r ight upper quadrant tenderness as well. However, her gallbladder ultrasound showed no evidence of ch olelithiasis or acute cholecystitis. Previously seen right intrarenal calculus was no longer visuali zed. Her symptoms improved during the hospitalization. She is in a stable condition for discharge. I prescribed 7 days of Keflex. MEDICATIONS ON DISCHARGE: 1. Keflex 500 mg p.o. every 8 hours x7 days. 2. Atorvastatin 20 mg p.o. at bedtime. 3. Levetiracetam 500 mg p.o. b.i.d. 4. Colace 100 mg p.o. daily. 5. [place] 5/325 one tablet every 6 hours as needed. PLAN: Follow up with primary care physician in 1 week. Dictated By: LISA FORMAN/ANGI Conf#: [id number] DID#: [id number] CC: LISA GOMEZ MD;*EndCC*
[2019-03-05 13:29] VITALS: BP 118/73; PULSE 75; RESP 20
[2019-03-05 13:38] VITALS: BP 137/73; PULSE 88; RESP 20
== END 2019-03-05 18:10 | disposition home health service (06) | DRG 690 ==
LOC: E/R 15:47 → 2NE 17:47 → EDBEDREQ 18:19
PROVIDERS: ADMIT Internal Medicine; ATTEND Internal Medicine
DX: N10 Acute pyelonephritis (principal); E78.5 Hyperlipidemia, unspecified; F17.210 Nicotine dependence, cigarettes, uncomplicated; G40.909 Epilepsy, unspecified, not intractable, without status epilepticus
CPT/HCPCS: 36415; 71045; 74176; 76700; 80053; 81001; 83605; 83690; 84484; 85025; 85610; 85730; 87086; 93005; 96374; 96375; J2270; J2405; J3370; J7030

== ENCOUNTER 2019-08-10 14:57 | Inpatient (IN) | payer BC ==
[~2019-08-10] VITALS: Ht 170.2 cm; Wt 59.3 kg
[~2019-08-10 14:57] MED LIST changes: +ACET500C5 PO; +AMLO-145 PO; +CARV6.2579 PO; +CEPH-442 PO; +CEPH-443 PO; +CEPH500C PO; +DIAZ5TAB PO; +NAPR-985 PO
[2019-08-10] MEDS ORDERED: ONDANSETRON 4 MG INJ IV STA (17:09)
[2019-08-10] MEDS ORDERED: morphine 4 MG/ML VIAL IV STA (17:09)
[2019-08-10] MEDS ORDERED: SOD CHLORIDE 0.9% 1,000 ML IV STA (17:09)
[2019-08-10] MEDS ORDERED: AZTREONAM 1 GM/NS (PMX) 50 ML IVPB STA (18:23)
[2019-08-10] MEDS ORDERED: SODIUM CHLORIDE 0.9% 1L BAG IV* STA (18:23)
[2019-08-10] MEDS ORDERED: CIPROFLOXACIN 500 MG TAB PO ONE (18:30)
[2019-08-10] MEDS ORDERED: VANCOMYCIN 1 GM (PMX) 250 ML IVPB ONE (18:30)
[2019-08-10] MEDS ORDERED: LORAZEPAM 2 MG INJ IV ONE (18:30)
[2019-08-10] MEDS ORDERED: ACETAMINOPHEN 325 MG TAB PO PRN (19:00)
[2019-08-10] MEDS: LEVETIRACETAM 500 MG TAB PO SCH (22:27)
[2019-08-10] MEDS ORDERED: DIAZEPAM 5 MG TAB PO PRN (22:30)
[2019-08-10] MEDS: ONDANSETRON 4 MG INJ IV PRN (22:33)
[2019-08-10] MEDS: SOD CHLORIDE 0.9% 1,000 ML IV SCH (22:33)
[2019-08-10] MEDS: CEFTRIAXONE 1 GM/50 ML (PMX) 50 ML IVPB SCH (22:42)
[2019-08-11] MEDS: ONDANSETRON 4 MG INJ IV PRN ×4 (00:36→19:02)
[2019-08-11] MEDS: ACETAMINOPHEN 325 MG TAB PO PRN ×2 (01:59→06:57)
[2019-08-11 02:34] VITALS: BP 160/86; PULSE 91; RESP 20
[2019-08-11 02:35] VITALS: Ht 170.2 cm; Wt 59.3 kg
[2019-08-11] MEDS: morphine 2 MG INJ IV PRN ×7 (04:06→21:15)
[2019-08-11] MEDS: SOD CHLORIDE 0.9% 1,000 ML IV SCH ×3 (06:47→21:23)
[2019-08-11] MEDS: DOCUSATE SODIUM 100 MG CAP PO SCH (08:24)
[2019-08-11] MEDS: LEVETIRACETAM 500 MG TAB PO SCH ×2 (08:24→21:15)
[2019-08-11] MEDS: ENOXAPARIN 40 MG/0.4 ML SYG SC SCH (08:26)
[2019-08-11 08:55] VITALS: BP 181/98; PULSE 78; RESP 18
[2019-08-11] MEDS: AMLODIPINE 5 MG TAB PO SCH ×2 (10:45→21:16)
[2019-08-11] MEDS: metroNIDAZOLE 500 MG/NS (PMX) 100 ML IVPB SCH ×3 (10:45→21:16)
[2019-08-11] MEDS ORDERED: SOD CHLORIDE 0.9% 0 ML ONE (14:00)
[2019-08-11] MEDS ORDERED: IOHEXOL 300MG/ML 150 ML BTL ONE (14:00)
[2019-08-11 15:10] VITALS: BP 169/95; PULSE 82; RESP 18
[2019-08-11 16:54] VITALS: BP 153/85; PULSE 95
[2019-08-11 20:00] VITALS: BP 157/98; PULSE 94; RESP 19
[2019-08-11] MEDS: ATORVASTATIN 20 MG TAB PO SCH (21:15)
[2019-08-11] MEDS: CEFTRIAXONE 1 GM/50 ML (PMX) 50 ML IVPB SCH (23:06)
[2019-08-12] MEDS: morphine 2 MG INJ IV PRN ×7 (01:27→23:40)
[2019-08-12] MEDS: ONDANSETRON 4 MG INJ IV PRN (01:27)
[2019-08-12 02:00] VITALS: BP 136/99; PULSE 88; RESP 18
[2019-08-12] MEDS: metroNIDAZOLE 500 MG/NS (PMX) 100 ML IVPB SCH (05:17)
[2019-08-12] MEDS: SOD CHLORIDE 0.9% 1,000 ML IV SCH (07:05)
[2019-08-12 07:31] VITALS: BP 129/81; PULSE 90; RESP 18
[2019-08-12] MEDS: LEVETIRACETAM 500 MG TAB PO SCH ×2 (08:29→21:17)
[2019-08-12] MEDS: DOCUSATE SODIUM 100 MG CAP PO SCH (08:29)
[2019-08-12] MEDS: AMLODIPINE 5 MG TAB PO SCH ×2 (08:29→21:00)
[2019-08-12] MEDS: ENOXAPARIN 40 MG/0.4 ML SYG SC SCH (08:31)
[2019-08-12] MEDS ORDERED: POTASSIUM CHLORIDE (SR) 20 MEQ TAB PO STA (11:20)
[2019-08-12 14:23] VITALS: BP 102/63; PULSE 88; RESP 16
[2019-08-12] MEDS: POTASSIUM CHLORIDE 30 MEQ in SOD CHLORIDE 0.9% 1,000 ML IV SCH (15:40)
[2019-08-12 20:00] VITALS: BP 87/54; PULSE 89; RESP 17
[2019-08-12] MEDS ORDERED: SOD CHLORIDE 0.9% 1,000 ML IV ONE (21:00)
[2019-08-12] MEDS: ATORVASTATIN 20 MG TAB PO SCH (21:17)
[2019-08-12] MEDS: CEFTRIAXONE 1 GM/50 ML (PMX) 50 ML IVPB SCH (22:26)
[2019-08-12 22:30] VITALS: BP 95/53; PULSE 76
[2019-08-12 23:33] VITALS: BP 128/72; PULSE 77
[2019-08-13 02:00] VITALS: BP 101/59; PULSE 72; RESP 17
[2019-08-13 04:10] VITALS: BP 140/66; PULSE 76
[2019-08-13] MEDS: morphine 2 MG INJ IV PRN ×2 (04:10→09:04)
[2019-08-13] MEDS: POTASSIUM CHLORIDE 30 MEQ in SOD CHLORIDE 0.9% 1,000 ML IV SCH (06:56)
[2019-08-13 08:26] VITALS: BP 114/71; PULSE 69; RESP 18
[2019-08-13] MEDS: DOCUSATE SODIUM 100 MG CAP PO SCH (08:50)
[2019-08-13 08:58] VITALS: BP 147/84; PULSE 88
[2019-08-13] MEDS: AMLODIPINE 5 MG TAB PO SCH (08:59)
[2019-08-13] MEDS: LEVETIRACETAM 500 MG TAB PO SCH (08:59)
[2019-08-13] MEDS: ENOXAPARIN 40 MG/0.4 ML SYG SC SCH (09:00)
== END 2019-08-13 13:20 | disposition home or self-care (01) | DRG 690 ==
LOC: E/R 14:57 → 5EC 18:47
PROVIDERS: ADMIT Legal Medicine; ATTEND Legal Medicine
DX: N39.0 Urinary tract infection, site not specified (principal); B18.2 Chronic viral hepatitis C; E87.6 Hypokalemia; I10 Essential (primary) hypertension; G40.909 Epilepsy, unspecified, not intractable, without status epilepticus; E78.5 Hyperlipidemia, unspecified; F32.9 Major depressive disorder, single episode, unspecified; F41.9 Anxiety disorder, unspecified; F17.200 Nicotine dependence, unspecified, uncomplicated; R10.32 Left lower quadrant pain; K57.30 Diverticulosis of large intestine without perforation or abscess without bleeding; Z88.0 Allergy status to penicillin; Z88.2 Allergy status to sulfonamides
CPT/HCPCS: 74176; 80048; 80053; 81001; 83605; 83690; 85025; 87081; 93005; 96374; 96375; J0696; J1650; J2060; J2270; J2405; J3370; J3480; J7030; Q9967